=== PATIENT | male | born 1975 | race Caucasian/White ===

== ENCOUNTER 2019-04-23 13:00 | Outpatient (REF) | payer MEDICAID, SELFPAY ==
[2019-04-23 19:57] LABS: Abs Immature Grans 0.02 k/cumm (0.0-0.09); Absolute Basophil Count 0.02 k/cumm (0.0-0.2); Absolute Eosinophil Count 0.12 k/cumm (0.0-0.7); Absolute Lymphocyte Count 2.11 k/cumm (1.2-3.4); Absolute Monocyte Count 0.64 k/cumm (0.11-0.7); Absolute Neutrophil Count 3.39 k/cumm (1.2-6.7); Basophils % 0.3; Eosinophils % 1.9; HCT 44.4 % (40.0-50.0); HGB 15.3 g/dL (13.5-17.5); Immature Grans % 0.3; Lymphocytes % 33.5; Mean Corp. HGB Concentration 34.5 g/dL (32.0-36.0); Mean Corpuscular Hemoglobin 34.2 pg (27.0-33.0); Mean Corpuscular Volume 99.3 fL (80-95); Mean Platelet Volume 9.2 fL (8.0-11.0); Monocytes % 10.2; Neutrophils % 53.8; Platelet Count 234 x1000/uL (130-400); RBC 4.47 m/cumm (4.50-6.00); RBC Distribution Width 12.9 % (11.8-14.1)
[2019-04-23 20:01] LABS: Anion Gap 11.1 mmol/L (3-11); BUN 10 mg/dL (7-18); C-Reactive Protein 0.14 mg/dL (0.0-0.3); CO2 27.9 mmol/L (21.0-32.0); CREATININE 0.58 mg/dL (0.70-1.30); Calcium 9.9 mg/dL (8.5-10.1); Chloride 102 mmol/L (98-107); Glucose 67 mg/dL (70-100); Potassium 3.9 mmol/L (3.5-5.1); Sodium 141 mmol/L (136-145)
[2019-04-23 20:41] LABS: ESR 15 MM/HR (0-15)
[2019-04-25 11:08] LABS: HIV-1/2 Ag & Ab Screen Negative (NEGAT)
== END 2019-04-23 13:20 ==
LOC: NCHCN 13:00
PROVIDERS: PCP Internal Medicine; Visit Provider Internal Medicine
DX: B18.2 Chronic viral hepatitis C (principal); M46.42 Discitis, unspecified, cervical region; M54.12 Radiculopathy, cervical region; Z11.4 Encounter for screening for human immunodeficiency virus [HIV]
CPT/HCPCS: 80048; 85652; 87389; 85025; 86140

== ENCOUNTER 2019-05-08 14:43 | Outpatient (REF) | payer MEDICAID, SELFPAY ==
[2019-05-08 18:55] LABS: Anion Gap 10.4 mmol/L (3-11); BUN 16 mg/dL (7-18); CO2 25.6 mmol/L (21.0-32.0); Calcium 9.8 mg/dL (8.5-10.1); Chloride 100 mmol/L (98-107); Glucose 85 mg/dL (70-100); Potassium 4.5 mmol/L (3.5-5.1); Sodium 136 mmol/L (136-145)
== END 2019-05-08 15:03 ==
LOC: NCHCN 14:43
PROVIDERS: PCP Internal Medicine; Visit Provider Nurse Practitioner Family
DX: M46.42 Discitis, unspecified, cervical region (principal)
CPT/HCPCS: 80048

== ENCOUNTER 2019-05-17 16:39 | Outpatient (REF) | payer MEDICAID, SELFPAY ==
[2019-05-17 18:48] LABS: C-Reactive Protein 0.08 mg/dL (0.0-0.3)
[2019-05-17 18:52] LABS: HCT 40.4 % (40.0-50.0); HGB 14.2 g/dL (13.5-17.5); Mean Corp. HGB Concentration 35.1 g/dL (32.0-36.0); Mean Corpuscular Hemoglobin 34.3 pg (27.0-33.0); Mean Corpuscular Volume 97.6 fL (80-95); Platelet Count 122 x1000/uL (130-400); RBC 4.14 m/cumm (4.50-6.00); RBC Distribution Width 12.7 % (11.8-14.1); White Blood Cell Count 5.43 k/cumm (4.4-10.8)
== END 2019-05-17 16:59 ==
LOC: NCHCN 16:39
PROVIDERS: PCP Internal Medicine; Visit Provider Internal Medicine
DX: M46.42 Discitis, unspecified, cervical region (principal); F11.20 Opioid dependence, uncomplicated; I10 Essential (primary) hypertension
CPT/HCPCS: 85027; 86140

== ENCOUNTER 2019-05-31 18:12 | Outpatient (REF) | payer MEDICAID, SELFPAY ==
[2019-05-31 19:08] LABS: HCT 36.4 % (40.0-50.0); HGB 12.9 g/dL (13.5-17.5); Mean Corp. HGB Concentration 35.4 g/dL (32.0-36.0); Mean Corpuscular Hemoglobin 34.9 pg (27.0-33.0); Mean Corpuscular Volume 98.4 fL (80-95); Mean Platelet Volume 9.2 fL (8.0-11.0); Platelet Count 106 x1000/uL (130-400); RBC Distribution Width 12.9 % (11.8-14.1); White Blood Cell Count 4.11 k/cumm (4.4-10.8)
[2019-05-31 20:00] LABS: C-Reactive Protein 0.14 mg/dL (0.0-0.3)
[2019-05-31 20:04] LABS: ESR 9 mm/hr (0-15)
== END 2019-05-31 18:32 ==
LOC: NCHCN 18:12
PROVIDERS: PCP Internal Medicine; Visit Provider Internal Medicine
DX: F11.20 Opioid dependence, uncomplicated (principal); M46.42 Discitis, unspecified, cervical region
CPT/HCPCS: 85027; 85652; 82565; 86140

== ENCOUNTER 2019-06-14 16:18 | Outpatient (REF) | payer MEDICAID, SELFPAY ==
[2019-06-14 19:40] LABS: Absolute Basophil Count 0.02 k/cumm (0.0-0.2); Absolute Eosinophil Count 0.09 k/cumm (0.0-0.7); Absolute Lymphocyte Count 2.39 k/cumm (1.2-3.4); Absolute Monocyte Count 0.49 k/cumm (0.11-0.7); Absolute Neutrophil Count 2.24 k/cumm (1.2-6.7); Basophils % 0.4; Eosinophils % 1.7; HCT 38.9 % (40.0-50.0); HGB 13.5 g/dL (13.5-17.5); Lymphocytes % 45.7; Mean Corp. HGB Concentration 34.7 g/dL (32.0-36.0); Mean Corpuscular Hemoglobin 35.9 pg (27.0-33.0); Mean Corpuscular Volume 103.5 fL (80-95); Mean Platelet Volume 8.9 fL (8.0-11.0); Monocytes % 9.4; Neutrophils % 42.8; Platelet Count 208 x1000/uL (130-400); RBC 3.76 m/cumm (4.50-6.00); RBC Distribution Width 15.6 % (11.8-14.1); White Blood Cell Count 5.23 k/cumm (4.4-10.8)
[2019-06-14 19:53] LABS: C-Reactive Protein 0.46 mg/dL (0.0-0.3); CREATININE 0.91 mg/dL (0.70-1.30)
[2019-06-14 20:30] LABS: ESR 11 mm/hr (0-15)
== END 2019-06-14 16:38 ==
LOC: NCHCN 16:18
PROVIDERS: PCP Internal Medicine; Visit Provider Internal Medicine
DX: M46.42 Discitis, unspecified, cervical region (principal); B18.2 Chronic viral hepatitis C
CPT/HCPCS: 85652; 82565; 85025; 86140

== ENCOUNTER 2019-07-13 15:16 | Outpatient (REF) | payer MEDICAID, SELFPAY ==
[2019-07-13 19:14] LABS: HCT 40.2 % (40.0-50.0); HGB 14.3 g/dL (13.5-17.5); Mean Corp. HGB Concentration 35.6 g/dL (32.0-36.0); Mean Corpuscular Volume 104.1 fL (80-95); Mean Platelet Volume 9.6 fL (8.0-11.0); Platelet Count 187 x1000/uL (130-400); RBC 3.86 m/cumm (4.50-6.00); RBC Distribution Width 14.3 % (11.8-14.1); White Blood Cell Count 7.08 k/cumm (4.4-10.8)
[2019-07-13 19:21] LABS: C-Reactive Protein 0.29 mg/dL (0.0-0.3); CREATININE 0.96 mg/dL (0.70-1.30)
[2019-07-13 19:54] LABS: ESR 8 mm/hr (0-15)
== END 2019-07-13 15:36 ==
LOC: NCHCN 15:16
PROVIDERS: PCP Internal Medicine; Visit Provider Internal Medicine
DX: B18.2 Chronic viral hepatitis C (principal); M46.42 Discitis, unspecified, cervical region
CPT/HCPCS: 85027; 85652; 82565; 86140

== ENCOUNTER 2020-12-22 13:59 | Outpatient (REF) | payer MEDICAID, SELFPAY ==
[2020-12-22 18:53] LABS: HCT 42.1 % (40.0-50.0); MCH 36.9 pg (27.0-33.0); MCHC 35.6 % (32.0-36.0); MCV 103.4 fL (80-95); MPV 9.9 fL (8.0-11.0); Platelet Count 168 10^3/uL (130-400); RBC 4.07 10^6/uL (4.36-5.78); RDW 12.4 % (11.8-14.1); RDW-SD 47.4 fL; WBC 8.26 10^3/uL (4.4-10.8)
[2020-12-22 19:13] LABS: ALT 20 U/L (16-63); AST 15 U/L (15-37); Albumin 4.1 g/dL (3.4-5.0); Alkaline Phosphatase 86 U/L (46-116); BUN 11 mg/dL (7-18); Bilirubin, Total 0.6 mg/dL (0.2-1.0); C-Reactive Protein 0.05 mg/dL (0.0-0.3); CREATININE 0.8 mg/dL (0.70-1.30); Calcium 9.8 mg/dL (8.5-10.1); Chloride 104 mmol/L (98-107); Glucose 85 mg/dL (74-106); Potassium 4.2 mmol/L (3.5-5.1); Sodium 141 mmol/L (136-145); Total Protein 7.5 g/dL (6.4-8.2)
== END 2020-12-22 14:00 | disposition home or self-care (01) ==
LOC: NCHCN 13:59
PROVIDERS: PCP Internal Medicine; Visit Provider Internal Medicine
DX: I10 Essential (primary) hypertension (principal); B18.2 Chronic viral hepatitis C
CPT/HCPCS: 80053; 85027; 86140

== ENCOUNTER 2022-03-10 18:27 | Outpatient (REF) | payer MEDICAID, SELFPAY ==
[2022-03-12 11:06] LABS: COVID-19 RT-PCR UVMMC Result Negative (Negative)
== END 2022-03-10 18:28 | disposition home or self-care (01) ==
LOC: NCHCN 18:27
PROVIDERS: PCP Internal Medicine; Visit Provider Internal Medicine
DX: I88.8 Other nonspecific lymphadenitis; J06.9 Acute upper respiratory infection, unspecified; Z20.822 Contact with and (suspected) exposure to COVID-19; L02.421 Furuncle of right axilla
CPT/HCPCS: 87077; U0003; 87070; 87186; 87205

== ENCOUNTER 2023-02-28 17:33 | Outpatient (REF) | payer MEDICARE, MEDICAID, SELFPAY ==
[2023-02-28 18:53] LABS: HCT 40.6 % (40.0-50.0); HGB 13.8 g/dL (13.5-17.5); MCH 33.1 pg (27.0-33.0); MCV 97 fL (80-95); Platelet Count 200 10^3/uL (130-400); RBC 4.17 10^6/uL (4.36-5.78); RDW 12.9 % (11.8-14.1); RDW-SD 45.9 fL; WBC 5.97 10^3/uL (4.4-10.8)
[2023-02-28 19:19] LABS: ALT 12 U/L (16-63); AST 19 U/L (15-37); Albumin 3.6 g/dL (3.4-5.0); Alkaline Phosphatase 92 U/L (46-116); Anion Gap 8.9 mmol/L (3-11); BUN 11 mg/dL (7-18); Bilirubin, Total 0.3 mg/dL (0.2-1.0); CO2 26.1 mmol/L (21.0-32.0); CREATININE 0.7 mg/dL (0.70-1.30); Calcium 9.4 mg/dL (8.5-10.1); Chloride 103 mmol/L (98-107); Estimated GFR 114.37 (mL/min/1.73m2); Glucose 70 mg/dL (74-106); Potassium 3.7 mmol/L (3.5-5.1); Sodium 138 mmol/L (136-145); TSH 3.06 uIU/mL (0.36-3.74); Total Protein 7.5 g/dL (6.4-8.2)
== END 2023-02-28 17:34 | disposition home or self-care (01) ==
LOC: NCHCN 17:33
PROVIDERS: PCP Internal Medicine; Visit Provider Internal Medicine
DX: R00.0 Tachycardia, unspecified (principal); F41.1 Generalized anxiety disorder; I10 Essential (primary) hypertension; F11.10 Opioid abuse, uncomplicated
CPT/HCPCS: 80053; 85027; 84443

== ENCOUNTER 2023-06-23 15:46 | Outpatient (REF) | payer MEDICARE, MEDICAID, SELFPAY ==
[2023-06-23 19:03] LABS: ESR 18 mm/hr (0-15)
[2023-06-23 19:08] LABS: Abs Immature Grans 0.01 10^3/uL (0.0-0.06); Absolute Basophil Count 0.04 10^3/uL (0.0-0.2); Absolute Eosinophil Count 0.24 10^3/uL (0.0-0.7); Absolute Lymphocyte Count 2.11 10^3/uL (1.2-3.4); Absolute Monocyte Count 0.52 10^3/uL (0.1-0.8); Absolute Neutrophil Count 2.76 10^3/uL (1.2-6.7); Basophils % 0.7; Eosinophils % 4.2; HCT 34.3 % (40.0-50.0); HGB 11.3 g/dL (13.5-17.5); Immature Grans % 0.2; Lymphocytes % 37.1; MCH 31.7 pg (27.0-33.0); MCHC 32.9 % (32.0-36.0); MCV 96 fL (80-95); Monocytes % 9.2; Neutrophils % 48.6; RBC 3.57 10^6/uL (4.36-5.78); RDW 13.8 % (11.8-14.1); RDW-SD 49.3 fL; WBC 5.68 10^3/uL (4.4-10.8)
[2023-06-23 19:17] LABS: C-Reactive Protein 0.33 mg/dL (0.0-0.3)
== END 2023-06-23 15:47 | disposition home or self-care (01) ==
LOC: NCHCN 15:46
PROVIDERS: PCP Internal Medicine; Visit Provider Internal Medicine
DX: M00.861 Arthritis due to other bacteria, right knee (principal); R70.0 Elevated erythrocyte sedimentation rate; R79.82 Elevated C-reactive protein (CRP)
CPT/HCPCS: 85652; 85025; 86140

== ENCOUNTER 2023-12-28 22:11 | Outpatient (REF) | payer MEDICARE, SELFPAY ==
[2023-12-28 20:14] LABS: HCT 44.1 % (40.0-50.0); MCH 33.9 pg (27.0-33.0); MCV 100 fL (80-95); MPV 8.9 fL (8.0-11.0); Platelet Count 246 10^3/uL (130-400); RBC 4.42 10^6/uL (4.36-5.78); RDW 12.2 % (11.8-14.1); WBC 9.33 10^3/uL (4.4-10.8)
[2023-12-28 20:26] LABS: ALT 16 U/L (16-63); AST 14 U/L (15-37); Albumin 4.1 g/dL (3.4-5.0); Alkaline Phosphatase 79 U/L (46-116); Anion Gap 6.9 mmol/L (3-11); BUN 19 mg/dL (7-18); Bilirubin, Total 0.3 mg/dL (0.2-1.0); CO2 31.1 mmol/L (21.0-32.0); CREATININE 0.8 mg/dL (0.70-1.30); Calcium 9.6 mg/dL (8.5-10.1); Chloride 104 mmol/L (98-107); Estimated GFR 109.17 (mL/min/1.73m2); Glucose 95 mg/dL (74-106); Potassium 4.3 mmol/L (3.5-5.1); Sodium 142 mmol/L (136-145); Total Protein 7.7 g/dL (6.4-8.2)
== END 2023-12-28 22:12 | disposition home or self-care (01) ==
LOC: NCHCN 22:11
PROVIDERS: PCP Internal Medicine; Visit Provider Internal Medicine
DX: K74.60 Unspecified cirrhosis of liver (principal)
CPT/HCPCS: 80053; 85027